=== PATIENT | female | born 1980 | race African-American/Black ===

== ENCOUNTER 2019-09-27 15:52 | Emergency (ER) | payer SELFPAY ==
[~2019-09-27] VITALS: Ht 157.5 cm; Wt 69.9 kg
[2019-09-27 16:30] VITALS: BP 109/68
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
== END 2019-09-27 19:20 | disposition home or self-care (01) ==
LOC: ER 15:52
DX: S16.1XXA Strain of muscle, fascia and tendon at neck level, initial encounter (principal); M54.5 Low back pain; E78.00 Pure hypercholesterolemia, unspecified; Z98.890 Other specified postprocedural states; V98.8XXA Other specified transport accidents, initial encounter; Y93.89 Activity, other specified; Y92.413 State road as the place of occurrence of the external cause; Y99.8 Other external cause status
CPT/HCPCS: 72040; 72100; 99284

== ENCOUNTER 2020-03-22 19:07 | Emergency (ER) | payer SELFPAY ==
[~2020-03-22] VITALS: Ht 160 cm; Wt 65.9 kg
[2020-03-22 20:00] VITALS: BP 125/67
--- NOTE | 2020-03-22 20:17 | RAD ---
Exam: Right ankle 3 views INDICATION: Pain, swelling TECHNIQUE: Frontal, lateral and oblique views of the right ankle Comparisons: None FINDINGS: Soft tissue swelling overlying the lateral malleolus. Subtle linear lucency at the distal fibula. Bon e mineralization is normal. Joint spaces are well-maintained. IMPRESSION: Probable nondisplaced obliquely oriented fracture at the lateral malleolus with overlying soft tissue swelling. Electronically signed by: Sheng Lancaster MD (03/22/2020 8:15 PM) [facility]
[2020-03-22] MEDS ORDERED: TRAM50TA PO (20:58)
--- NOTE | 2020-03-22 20:59 | ED.ADGEN ---
Past Medical History Past Medical History: High Cholesterol, Other Additional Past Medical Histor: lower back injury 09/29 Past Surgical History: Smoking Status: Never Smoker Alcohol Use: None General Adult EDM: Chief Complaint: ANKLE PROBLEM HPI: HPI: Patient is a 39 year old female who presents to the Emergency Room complaining of R lateral pain. Patient fell on ice on Friday and has been having pain since that time. Pain is worse with walking, however patient is able to walk. Denies any other injuries. Pain is 4/10 at rest and feels like an achy pain. Pain is constant. No radiation. Review of Systems: Review of Systems: Complete ROS is negative unless otherwise documented in HPI Allergies: Allergies: Allergies Coded Allergies Type Severity Reaction Last Updated Verified No Known Drug Allergies 09/27/19 No Physical Exam: PE: general: Awake, alert, NAD. Well Nourished, well hydrated. Cooperative HEENT: Atraumatic, EOMI, PERRL, airway patent, moist oral mucosa Neck: Supple, trachea midline MSK: R ankle: lateral malleous tendernes, lateral ankle swelling, intact sensation/strength, 2+DP pulse Skin: Warm, dry, intact Neuro: A&O x3, speech NL, sensory and motor grossly intact, no focal deficits Psych: Normal affect, normal mood, not suicidal or homicidal Current Patient Data: Vital Signs: Vital Signs Date Time Temp Pulse Resp B/P (MAP) Pulse Ox O2 Delivery O2 Flow Rate FiO2 03/22/20 20:00 91 18 125/67 (86) 99 03/22/20 19:13 98.1 Room Air 98.1 EKG: EKG: [] Heart Score: Risk Factors: Risk Factors: DM, Current or recent (<one month) smoker, HTN, HLP, family history of CAD, obesity. Risk Scores: Score 0 - 3: 2.5% MACE over next 6 weeks - Discharge Home Score 4 - 6: 20.3% MACE over next 6 weeks - Admit for Clinical Observation Score 7 - 10: 72.7% MACE over next 6 weeks - Early Invasive Strategies Radiology/Procedures: Radiology/Procedures: [] Course & Med Decision Making: Course & Med Decision Making Pertinent Labs and Imaging studies reviewed. (See chart for details) Patient is a 39 year old female who presents with R ankle pain after a fall 3 days ago. Ankle x-ray was ordered. Patient may have a mild nondisplaced fracture. She was placed in a posterior short leg and given crutches. She will follow up with Dr Mcclelland. Patient's test results and vitals while in the ED were fully reviewed and discussed with the patient. Patient is stable and at this time does not need admission to the hospital. We have discussed strict return precautions and the importance of following up with their Primary Care Physician. Patient stated understanding and was given an opportunity to ask any questions. Patient is in agreement with plan. Dragon Disclaimer: Carrie Disclaimer: This electronic medical record was generated, in whole or in part, using a voice recognition dictation system. Departure Departure Impression: Primary Impression: Lateral malleolar fracture Disposition: 01 DC HOME SELF CARE/HOMELESS Condition: STABLE Referrals: NO PCP (PCP) DARREL MCCLELLAND MD Patient Instructions: Ankle Fracture, Cast or Splint Care Scripts Tramadol Hcl (TRAMADOL HCL) 50 Mg Tablet 50 MG PO Q6HRS PRN for PAIN, #6 TAB Prov: BILL TOVAR MD 03/22/20 BILL TOAVR MD Mar 22, 2020 20:59
== END 2020-03-22 21:15 | disposition home or self-care (01) ==
LOC: ER 19:07
DX: S82.61XA Displaced fracture of lateral malleolus of right fibula, initial encounter for closed fracture (principal); E78.00 Pure hypercholesterolemia, unspecified; W00.0XXA Fall on same level due to ice and snow, initial encounter; Y93.89 Activity, other specified; Y92.89 Other specified places as the place of occurrence of the external cause; Y99.8 Other external cause status
CPT/HCPCS: 29515; 73610; 99284